=== PATIENT | female | born 1930 | race Caucasian/White ===

== ENCOUNTER → 2017-12-24 | Outpatient (CLI) | payer MEDICARE, OTHER ==
[~2017-12-24] MED LIST: ACET500 PO; ALPRAZOLAM; ASCO500 PO; CELE100 PO; Celebrex PO; Cipro250 MG PO; DESL5 PO; DEXL60CA3 PO; ESCI5 PO; ESOM20 PO; ESTR1; Felodipine ER5 MG PO; Guaifenesin Dm118 ML PO; HYDACE10B PO; HYDACE5 PO; Hydrocodone-Ap1 EA23 PO; IBUP600 PO; LEVFLO500 PO; LEVOTHYROXINE; LEVSOD100 PO; LORA10 PO; LORATADINE; MULVIT; NAPR500 PO; Norco 5-325 Ta1 EACH PO; PHENA200 PO; RALO60 PO; ROXICODONE5 MG PO; Robaxin500 MG PO; SYNTHROID; VALD20 PO; VENL75ER PO; Zofran Odt4 MG SL
== END | disposition home or self-care (01) ==
LOC: LAB SHORT 08:08 → PLD 08:08
DX: D48.5 Neoplasm of uncertain behavior of skin (principal)
CPT/HCPCS: 88305

== ENCOUNTER 2018-01-17 08:03 | Day surgery (SDC) | payer MEDICARE, OTHER ==
[~2018-01-17] VITALS: Ht 149.9 cm; Wt 55.6 kg
== END 2018-01-17 10:45 | disposition home or self-care (01) ==
LOC: ORSCSDS 08:03
PROVIDERS: Internal Medicine Gastroenterology
PROC: 0DB58ZX Excision of Esophagus, Via Natural or Artificial Opening Endoscopic, Diagnostic (ICD-10-PCS; principal; 2018-01-17 09:30)
PROC: 0DB68ZX Excision of Stomach, Via Natural or Artificial Opening Endoscopic, Diagnostic (ICD-10-PCS; principal; 2018-01-17 09:30)
PROC: 0D758ZZ Dilation of Esophagus, Via Natural or Artificial Opening Endoscopic (ICD-10-PCS; principal; 2018-01-17 09:30)
DX: R13.10 Dysphagia, unspecified (principal); K22.4 Dyskinesia of esophagus; K22.2 Esophageal obstruction; K44.9 Diaphragmatic hernia without obstruction or gangrene; K31.7 Polyp of stomach and duodenum; K22.8 Other specified diseases of esophagus; K21.9 Gastro-esophageal reflux disease without esophagitis; E03.9 Hypothyroidism, unspecified; J45.909 Unspecified asthma, uncomplicated; I10 Essential (primary) hypertension; Z79.899 Other long term (current) drug therapy
CPT/HCPCS: 88305; J7120

== ENCOUNTER → 2018-05-28 | Outpatient (CLI) | payer MEDICARE, OTHER ==
[2018-05-28 15:06] LABS: BASOPHILS ABSOLUTE AUTO 0.03 K/mm3 (0.00-0.23); BASOPHILS PERCENT AUTO 0 % (0-2); EOSINOPHILS PERCENT AUTO 1 % (0-6); Hematocrit 40.6 % (33.0-51.0); Hemoglobin 13.1 g/dL (11.5-16.0); IMMATURE GRAN ABSOLUTE AUTO 0.02 K/mm3 (0.00-0.10); IMMATURE GRAN PERCENT AUTO 0 % (0-1); LYMPHOCYTES ABSOLUTE AUTO 2.17 K/mm3 (0.84-5.20); LYMPHOCYTES PERCENT AUTO 26 % (21-46); MONOCYTES ABSOLUTE AUTO 0.38 K/mm3 (0.16-1.47); MONOCYTES PERCENT AUTO 5 % (4-13); Mean Corpuscular HGB 30.7 pg (26.0-34.0); Mean Corpuscular HGB Conc 32.3 g/dL (31.5-36.5); Mean Corpuscular Volume 95 fL (80-100); Mean Platelet Volume 10.6 fL (9.1-12.4); NEUTROPHILS ABSOLUTE AUTO 5.58 K/mm3 (1.96-9.15); NEUTROPHILS PERCENT AUTO 67 % (41-73); Platelet Count 281 K/mm3 (150-400); RDW Coefficient Variation 14.1 % (11.7-14.2); RDW Standard Deviation 49.6 fL (35.1-46.3); Red Blood Cell Count 4.27 M/mm3 (3.80-5.20); White Blood Cell Count 8.28 K/mm3 (4.00-11.30)
[2018-05-28 15:43] LABS: Alanine Aminotransfer (ALT/SGP 24 U/L (12-78); Albumin, Blood 3.7 g/dL (3.4-5.0); Albumin/Globulin Ratio 1.2 (0.8-1.8); Alk Phos 85 U/L (50-136); Anion Gap 6 mmol/L (6-16); Aspartate Aminotrans (AST/SGOT 12 U/L (12-37); Bilirubin, Total 0.3 mg/dL (0.1-1.0); Blood Urea Nitrogen 23 mg/dL (8-24); Bun/Creatinine Ratio 26.5 (12.0-20.0); CO2, Blood 27 mmol/L (21-32); Calcium, Blood 8.4 mg/dL (8.5-10.1); Chloride, Blood 105 mmol/L (98-108); Creatinine, Blood 0.87 mg/dL (0.40-1.00); Globulin, Blood 3.2 g/dL (2.2-4.0); Glomerular Filtration Rate >60 (60-); Glucose, Blood 111 mg/dL (70-99); Potassium, Blood 4.1 mmol/L (3.5-5.5); Sodium, Blood 138 mmol/L (136-145); Total Protein, Blood 6.9 g/dL (6.4-8.2)
[2018-05-28 15:46] LABS: Thyroid Stimulating Hormone 0.874 uIU/mL (0.360-4.800)
== END | disposition home or self-care (01) ==
LOC: LAB SHORT 14:51 → LAB 14:51
PROVIDERS: Physician Assistant
DX: R42 Dizziness and giddiness (principal)
CPT/HCPCS: 80053; 84443; 85025

== ENCOUNTER 2018-12-09 08:33 | Day surgery (SDC) | payer MEDICARE, OTHER ==
[~2018-12-09] VITALS: Ht 149.9 cm; Wt 53.2 kg
--- NOTE | 2018-12-09 09:21 | NUR ---
History, Chart, Medications and Allergies reviewed before start of procedure. Patient confirms NPO status and agrees with scheduled surgery. Lungs clear T/O to Auscultation. Patient reports completing Chlorhexadine shower X2 prior to admission to hospital. Pre-Op teaching done. Pt verbalizes understanding. GLASSES ON AT ADMIT, NO JEWELRY PRESENT, HEARING DEVICES BILATERAL PRESENT IN EARS.
--- NOTE | 2018-12-09 09:55 | NUR ---
PATIENT UP TO BR FOR UNMEASUERED VOID.
--- NOTE | 2018-12-09 09:56 | NUR ---
NOZIN SWABS COMPLETED PRE-OPERATIVELY.
--- NOTE | 2018-12-09 09:58 | NUR ---
PATIENT GAVE HER GLASSES TO HER TO HOLD.
--- NOTE | 2018-12-09 10:01 | NUR ---
DR PINEDA NOTIFIED OF ELEVATED B/P.
--- NOTE | 2018-12-09 10:07 | NUR ---
SENIOR QUALITY CONTROL INSPECTOR REPORT COMPLETED AT BEDSIDE WITH BALTAZAR BARBOUR RN.
--- NOTE | 2018-12-09 17:25 | NUR ---
SHIFT SUMMARY PT A&OX4, S/P R TKA, AQUACEL CDI, TEDS/SCDS/POLAR OLIVER ON. PAIN MANAGED WITH 5-10 MG OXY, TYLENOL AND TORADOL. CORRINA PO, DENIES N&V. AMB W/FWW/GB/SBA TO BRP. VOIDING WELL. PHYSICAL THERAPY EVAL'D, PT UP TO CHAIR. WCTM & TX PER EMAR UNTIL REPORT GIVEN TO ONCPRANAY SHEN RN.
[2018-12-10 04:35] LABS: BASOPHILS ABSOLUTE AUTO 0.04 K/mm3 (0.00-0.23); BASOPHILS PERCENT AUTO 1 % (0-2); EOSINOPHILS ABSOLUTE AUTO 0.37 K/mm3 (0.00-0.68); EOSINOPHILS PERCENT AUTO 5 % (0-6); Hematocrit 38.1 % (33.0-51.0); Hemoglobin 12.6 g/dL (11.5-16.0); IMMATURE GRAN ABSOLUTE AUTO 0.03 K/mm3 (0.00-0.10); IMMATURE GRAN PERCENT AUTO 0 % (0-1); LYMPHOCYTES ABSOLUTE AUTO 1.03 K/mm3 (0.84-5.20); LYMPHOCYTES PERCENT AUTO 14 % (21-46); MONOCYTES ABSOLUTE AUTO 0.61 K/mm3 (0.16-1.47); MONOCYTES PERCENT AUTO 8 % (4-13); Mean Corpuscular HGB 30.9 pg (26.0-34.0); Mean Corpuscular HGB Conc 33.1 g/dL (31.5-36.5); Mean Corpuscular Volume 93 fL (80-100); Mean Platelet Volume 9.8 fL (9.1-12.4); NEUTROPHILS ABSOLUTE AUTO 5.23 K/mm3 (1.96-9.15); NEUTROPHILS PERCENT AUTO 72 % (41-73); Platelet Count 228 K/mm3 (150-400); RDW Coefficient Variation 14.8 % (11.7-14.2); RDW Standard Deviation 51.7 fL (35.1-46.3); Red Blood Cell Count 4.08 M/mm3 (3.80-5.20); White Blood Cell Count 7.31 K/mm3 (4.00-11.30)
[2018-12-10 04:56] LABS: Anion Gap 5 mmol/L (6-16); Blood Urea Nitrogen 10 mg/dL (8-24); Bun/Creatinine Ratio 12.9 (12.0-20.0); CO2, Blood 29 mmol/L (21-32); Calcium, Blood 8.3 mg/dL (8.5-10.1); Chloride, Blood 104 mmol/L (98-108); Creatinine, Blood 0.78 mg/dL (0.40-1.00); Glomerular Filtration Rate >60 (60-); Glucose, Blood 102 mg/dL (70-99); Potassium, Blood 4.5 mmol/L (3.5-5.5); Sodium, Blood 138 mmol/L (136-145)
--- NOTE | 2018-12-10 05:26 | NUR ---
SUMMARY POD #1 RIGHT TKA DRSG REMAINS C/D/I, PAIN MANAGED PER EMAR. PT IS A 1 ASSIST USING FWW/GAIT BELT. TOLERATING PO INTAKE. VOIDING WNL. PT CALLS FOR ASSISTANCE NEEDED. CALL LIGHT IN REACH
[2018-12-10] MEDS ORDERED: OXYC5 PO (09:50)
[2018-12-10] MEDS ORDERED: XARELTO15 MG PO (09:50)
--- NOTE | 2018-12-10 11:10 | NUR ---
DISCHARGE PT HAS DONE VERY WELL, CLEARED THERAPY, TOLERATING DIET, VOIDING AND PASSING GAS, PAIN WELL MANAGED. SCRIPT AND DRSGS GIVEN. NELLIE CALLED TO [facility]. ESCORTED OUT VIA W/C. SPOUSE ATTENTIVE AND LOVING.
== END 2018-12-10 11:19 | disposition home or self-care (01) ==
LOC: ORSCMMR 08:33 → ORD 10:45 → SURS 13:52 → ORSCMMR 12-10 11:19
PROVIDERS: Orthopaedic Surgery
PROC: 0SRC069 Replacement of Right Knee Joint with Oxidized Zirconium on Polyethylene Synthetic Substitute, Cemented, Open Approach (ICD-10-PCS; principal; 2018-12-09 10:45)
DX: M17.11 Unilateral primary osteoarthritis, right knee (principal); I10 Essential (primary) hypertension; J45.909 Unspecified asthma, uncomplicated; E03.9 Hypothyroidism, unspecified; Z79.899 Other long term (current) drug therapy
CPT/HCPCS: 36415; 73560-RT; 80048; 83735; 85025; 88300; 97110; 97116; 97162; 97530; C1776; J0171; J0690; J0735; J1885; J2250; J2704; J2795; J3010; J7120

== ENCOUNTER 2020-11-09 11:10 | Day surgery (SDC) | payer MEDICARE, OTHER ==
[~2020-11-09 11:10] MED LIST changes: +CYAN1000I IM; +ESCI10 PO; +FELODIPINE ER5 M1 PO; +LORA10ER PO; +OXYC5 PO; +Premarin1.25 MG; +XARELTO15 MG PO
== END 2020-11-09 13:08 | disposition home or self-care (01) ==
LOC: ORSCSDS 11:10
PROVIDERS: Internal Medicine Gastroenterology
PROC: 0DJD8ZZ Inspection of Lower Intestinal Tract, Via Natural or Artificial Opening Endoscopic (ICD-10-PCS; principal; 2020-11-09 12:30)
DX: Z12.11 Encounter for screening for malignant neoplasm of colon (principal); Z86.010 Personal history of colon polyps; K64.8 Other hemorrhoids; I10 Essential (primary) hypertension; J45.909 Unspecified asthma, uncomplicated; E03.9 Hypothyroidism, unspecified; Z79.899 Other long term (current) drug therapy
CPT/HCPCS: J2704; J7120

== ENCOUNTER 2021-01-01 15:21 | Inpatient (IN) | payer MEDICARE, OTHER ==
[~2021-01-01] VITALS: Ht 170.2 cm; Wt 53.5 kg
[2021-01-01 15:45] LABS: BASOPHILS ABSOLUTE AUTO 0.02 K/mm3 (0.00-0.23); BASOPHILS PERCENT AUTO 0 % (0-2); EOSINOPHILS ABSOLUTE AUTO 0.01 K/mm3 (0.00-0.68); EOSINOPHILS PERCENT AUTO 0 % (0-6); Hematocrit 29.9 % (33.0-51.0); Hemoglobin 10.3 g/dL (11.5-16.0); IMMATURE GRAN ABSOLUTE AUTO 0.07 K/mm3 (0.00-0.10); IMMATURE GRAN PERCENT AUTO 0 % (0-1); LYMPHOCYTES ABSOLUTE AUTO 1.76 K/mm3 (0.84-5.20); LYMPHOCYTES PERCENT AUTO 11 % (21-46); MONOCYTES ABSOLUTE AUTO 1.62 K/mm3 (0.16-1.47); MONOCYTES PERCENT AUTO 10 % (4-13); Mean Corpuscular HGB 30.5 pg (26.0-34.0); Mean Corpuscular HGB Conc 34.4 g/dL (31.5-36.5); Mean Corpuscular Volume 89 fL (80-100); Mean Platelet Volume 10.3 fL (9.1-12.4); NEUTROPHILS ABSOLUTE AUTO 12.12 K/mm3 (1.96-9.15); NEUTROPHILS PERCENT AUTO 78 % (41-73); Platelet Count 208 K/mm3 (150-400); RDW Coefficient Variation 13.8 % (11.7-14.2); RDW Standard Deviation 45.2 fL (35.1-46.3); Red Blood Cell Count 3.38 M/mm3 (3.80-5.20)
[2021-01-01 16:09] LABS: Alanine Aminotransfer (ALT/SGP 18 U/L (12-78); Albumin, Blood 2.6 g/dL (3.4-5.0); Albumin/Globulin Ratio 0.7 (0.8-1.8); Alk Phos 64 U/L (50-136); Anion Gap 10 mmol/L (6-16); Aspartate Aminotrans (AST/SGOT 21 U/L (12-37); Bilirubin, Direct 0.3 mg/dL (0.0-0.3); Bilirubin, Indirect 0.7 mg/dL (0.1-0.7); Blood Urea Nitrogen 14 mg/dL (8-24); Bun/Creatinine Ratio 24.3 (12.0-20.0); CO2, Blood 21 mmol/L (21-32); Chloride, Blood 96 mmol/L (98-108); Creatinine, Blood 0.58 mg/dL (0.40-1.00); Globulin, Blood 3.6 g/dL (2.2-4.0); Glomerular Filtration Rate >60 (60-); Glucose, Blood 100 mg/dL (70-99); Magnesium, Blood 1.7 mg/dL (1.6-2.4); Potassium, Blood 4.2 mmol/L (3.5-5.5); Sodium, Blood 127 mmol/L (136-145); Total Protein, Blood 6.2 g/dL (6.4-8.2); Troponin I 0.059 ng/mL (0.000-0.040)
[2021-01-01 16:36] LABS: Base Excess Venous -0.6 mmol/L; Bicarbonate Venous 24.1 mmol/L (24.0-30.0); PCO2 Venous 38.8 mmHg (38-42); PO2 Venous 106 mmHg (38-42)
[2021-01-01 16:49] LABS: Source, Urine Catheter
[2021-01-01 16:53] LABS: Appearance, Urine Clear (Clear); Bilirubin, Urine Neg (Neg); Blood, Urine 3+ (Neg); Color, Urine Yellow (P-Yellow); Glucose Qualitative, Urine Neg (Neg); Ketones, Urine 3+ (Neg); Leukocyte Esterase, Urine Neg (Neg); Nitrite, Urine Neg (Neg); Protein, Urine 2+ (Neg); Urobilinogen, Urine NORM (Normal)
[2021-01-01 17:09] LABS: Bacteria Few /hpf; Squamous Epithelial Cells Few /hpf (Few)
[2021-01-01 17:37] LABS: SARS-Cov-2 (COVID-19) PCR, MMC NEGATIVE (NEGATIVE)
[2021-01-01 19:31] LABS: Percent Saturation 5.4 % (15.0-50.0)
[2021-01-02 05:04] LABS: Hematocrit 28.1 % (33.0-51.0); Hemoglobin 9.6 g/dL (11.5-16.0); Mean Corpuscular HGB 30.8 pg (26.0-34.0); Mean Corpuscular HGB Conc 34.2 g/dL (31.5-36.5); Mean Corpuscular Volume 90 fL (80-100); Mean Platelet Volume 11.5 fL (9.1-12.4); Platelet Count 194 K/mm3 (150-400); RDW Standard Deviation 46.1 fL (35.1-46.3); Red Blood Cell Count 3.12 M/mm3 (3.80-5.20); White Blood Cell Count 12.96 K/mm3 (4.00-11.30)
[2021-01-02 05:28] LABS: Anion Gap 6 mmol/L (6-16); Blood Urea Nitrogen 11 mg/dL (8-24); Bun/Creatinine Ratio 18.1 (12.0-20.0); CO2, Blood 25 mmol/L (21-32); Chloride, Blood 99 mmol/L (98-108); Creatinine, Blood 0.61 mg/dL (0.40-1.00); Glomerular Filtration Rate >60 (60-); Glucose, Blood 114 mg/dL (70-99); Potassium, Blood 3.6 mmol/L (3.5-5.5); Sodium, Blood 130 mmol/L (136-145)
--- NOTE | 2021-01-02 06:13 | NUR ---
PATIENT SUMMARY PATIENT IS ALERT AND ORIENTED 2-3 FORGETFUL, FLAT EFFECT. VS STABLE FOR PATIENT ON 4L NC. NO COMPLAINTS OF CHEST PAIN OR SHORTNESS OF BREATH. DRESSING IN C/D/I TO RIGHT BACK WITH CORRINE PRAT DRAIN DRAINING MINNIMAL BLOODY OUTPUT. JOHNS TO GRAVITY. ALL CARES COMPLETED AND MEDICATIONS GIVEN ORDERED TO NURSING JUDGEMENT. ALL UNFINISHED CARES ENDORSED TO ONCOMING RN.
--- NOTE | 2021-01-02 12:52 | NUR ---
SHIFT SUMMARY PT RESTING QUIETLY AT START OF SHIFT. WOKE EASILY FOR CARE. PT FORGETFUL AND UNSURE WHY SHE IS IN THE HOSPITAL. ATTEMPTED TO INFORM PT AND ASK QUESTIONS, BUT PT DOES NOT REMEMBER. PER REPORT, RESENT BACK SX FOR SPINAL STENOSIS WITH JENIFER DRAIN IN PLACE. SM AMT OF BLOODY FLUID IN DRAIN. DROPS ONLY IN TUBING. DRSG TO R LOW BACK C/D/I AT THIS TIME. PT CALLED FOR UPDATE AND REPORTED BACK SX DONE IN [place]. TO CALL UP THERE TOMORROW FOR INFO R/T HOW AND WHEN DRAIN TO BE REMOVED. PT C/O PAIN AND SWELLING TO RH. DAUGHTER CALLED FOR UPDATE THIS AM AND REPORTED RH SWELLING AND PAIN JUST APPEARED OVERNIGHT WHEN PT WOKE UP AT HOME YESTERDAY. DR COOLEY INFORMED OF RH PAIN AND SWELLING, REPORTING IT ARTHRITIS. TYLENOL GIVEN PER EMAR; PT REPORTED THAT IT HELPED. JOHNS TO GRAVITY DRAINING CL YELLOW. PER REPORT, PLACED FOR RETENSION. PT ABLE TO TAKE PO MEDS W/O DIFFICULTY IN APPLESAUCE. ABLE TO DRINK THIN LIQUIDS W/O DIFFICULTY WELL. SPEECH CLEAR. NO APPARENT NEURO DEFICITS NOTED AT THIS TIME. REPOSITIONED PER PT REQUEST, Q1-2 HRS. RESTING QUIETLY AT THIS TIME. CALL LT IN REACH. WILL MONITOR.
--- NOTE | 2021-01-02 18:06 | NUR ---
INS ORDERED EARLIER TODAY. PT INSTRUCTED ON USE AND HAS BEEN USING ON HER OWN ALL AFTERNOON. PT'S MENTATION HAS IMPROVED SINCE THIS AM WELL. VERY PLEASANT AND CO-OP OF CARE. ABLE TO MAKE NEEDS KNOWN.
[2021-01-03 05:13] LABS: Hematocrit 27.2 % (33.0-51.0); Hemoglobin 9.4 g/dL (11.5-16.0); Mean Corpuscular HGB 30.7 pg (26.0-34.0); Mean Corpuscular HGB Conc 34.6 g/dL (31.5-36.5); Mean Corpuscular Volume 89 fL (80-100); Mean Platelet Volume 11.3 fL (9.1-12.4); Platelet Count 240 K/mm3 (150-400); RDW Coefficient Variation 13.8 % (11.7-14.2); RDW Standard Deviation 45.3 fL (35.1-46.3); Red Blood Cell Count 3.06 M/mm3 (3.80-5.20); White Blood Cell Count 10.74 K/mm3 (4.00-11.30)
[2021-01-03 05:45] LABS: Albumin, Blood 2.3 g/dL (3.4-5.0); Anion Gap 7 mmol/L (6-16); Blood Urea Nitrogen 10 mg/dL (8-24); Bun/Creatinine Ratio 17.4 (12.0-20.0); CO2, Blood 24 mmol/L (21-32); Calcium, Blood 8.2 mg/dL (8.5-10.1); Chloride, Blood 100 mmol/L (98-108); Creatinine, Blood 0.57 mg/dL (0.40-1.00); Glomerular Filtration Rate >60 (60-); Glucose, Blood 105 mg/dL (70-99); Phosphorus, Blood 2.2 mg/dL (2.5-4.9); Potassium, Blood 3.4 mmol/L (3.5-5.5); Sodium, Blood 131 mmol/L (136-145)
--- NOTE | 2021-01-03 05:53 | NUR ---
SHIFT SUMMARRY PATIENT PLEASANT AND SLIGHTLY CONFUSED . REPORTS BACK PAIN, PRN TYLENOL GIVEN WITH GOOD EFFECTS. FETYNYL 25-50MG PRN ORDERED . PATIENT ALSO REPORTS CONSTIPATION STATING THAT LAST BM WAS SUNDAY. MD ORDERED BOWEL CARE PROTOCOL. 10ML MOM ADMISTERED , AWAITING RESULTS.
[2021-01-03 15:42] LABS: Vancomycin, Trough 2.9 ug/mL (5.0-10.0)
--- NOTE | 2021-01-03 18:33 | NUR ---
SHIFT SUMMARY PT DROWSY THIS A.M. BUT DID AROUSE TO NAME AND RESPOND APPROPRIATELY. APPEARS VAGUE BUT ABLE TO ANSWER ORIENTATION QUESTIONS CORRECTLY. DAUGHTER CONCERNED ABOUT ONGOING CONFUSION. THIS EVENING AFTER BEING SEEN BY Corrine. PT ATTEMPTED TO CLIMB OOB SAYING SHE THOUGHT SHE WAS GOING HOME UNTIL BED ALARM SOUNDED. ALSO INSISTED THAT I, THE RN, WAS HER DAUGHTER ADAMA. SHOWED HER MY BADGE AND SHE ASKED HOW I GOT THAT WHEN I WAS HER DAUGHTER ADAMA AND WHER WAS MY GLASSES. LATER AFTER SPEAKING WITH HER OTHER DAUGHTER NEIL SHE SAID I WASN'T HER DAUGHTER ADAMA. O2 TUBING CHANGED FROM OXIMIZER TO NASAL CANNULA WITH SATS AT 98% ON 4L/M. SPOKE WITH DR. CRUM OFFICE ABOUT JENIFER DRAIN WITH OK TO REMOVE DRAIN DUE TO NO FURTHER DRAINAGE FROM SITE. ANDREAS REMAINS. UP IN CHAIR FOR ONLY A SHORT TIME PRIOR TO LUNCH BUT DIDN'T TOLERATE SITTING UP FOR VERY LONG DUE TO DISCOMFORT.
[2021-01-04 05:14] LABS: Hematocrit 27.4 % (33.0-51.0); Hemoglobin 9.3 g/dL (11.5-16.0); Mean Corpuscular HGB 30.5 pg (26.0-34.0); Mean Corpuscular HGB Conc 33.9 g/dL (31.5-36.5); Mean Corpuscular Volume 90 fL (80-100); Mean Platelet Volume 10.6 fL (9.1-12.4); Platelet Count 300 K/mm3 (150-400); RDW Standard Deviation 45.5 fL (35.1-46.3); Red Blood Cell Count 3.05 M/mm3 (3.80-5.20); White Blood Cell Count 7.81 K/mm3 (4.00-11.30)
--- NOTE | 2021-01-04 05:39 | NUR ---
SHIFT SUMMARRY PATIENT REMAINS PLEASANTLY CONFUSED. NO ACUTE MEDICAL CHANGES. SLEPT MOST OF THE NIGHT. JOHNS CONTINUES TO DRAIN MODERATE AMOUNTS OF CLEAR YELLOW URINE.
[2021-01-04 05:50] LABS: Albumin, Blood 2.3 g/dL (3.4-5.0); Anion Gap 4 mmol/L (6-16); Blood Urea Nitrogen 9 mg/dL (8-24); Bun/Creatinine Ratio 13.5 (12.0-20.0); CO2, Blood 29 mmol/L (21-32); Calcium, Blood 8.4 mg/dL (8.5-10.1); Chloride, Blood 101 mmol/L (98-108); Creatinine, Blood 0.67 mg/dL (0.40-1.00); Glomerular Filtration Rate >60 (60-); Glucose, Blood 92 mg/dL (70-99); Phosphorus, Blood 2.9 mg/dL (2.5-4.9); Potassium, Blood 3.9 mmol/L (3.5-5.5); Sodium, Blood 134 mmol/L (136-145)
[2021-01-04 15:20] LABS: Vancomycin, Trough 8.3 ug/mL (5.0-10.0)
--- NOTE | 2021-01-04 18:41 | NUR ---
SHIFT SUMMARY JENIFER DRAIN REMOVED THIS MORNING WITH NO APPARENT TRAUMA. DRESSING APPLIED FOR POTENTIAL FURTHER DRAINAGE. INCISION NO LONGER DRAINING. JOHNS REMOVED THIS MORNING AT 1030 AND PT HAS VOIDED ONCE WITH NO RESIDUAL NOTED WITH BLADDER SCAN. APPEARS MENTALLY MORE CLEAR THAN YESTERDAY. ABLE TO USE CELL PHONE. UP IN CHAIR THIS AFTERNOON TWICE. AMBULATED TO BATHROOM WITH 1 PERSON ASSIST USING FWW. HAS DENIED PAIN THROUGH DAY.
--- NOTE | 2021-01-05 05:11 | NUR ---
SHIFT SUMMARRY PATIENT QUIET IN BED MOST OF THAE NIGHT. ASSISTED TO THE BATHROOM TWICE FOR LARGE AMOUNTS OF CLEAR YELLOW VOIDS. NO SSOF DISTRESS NOTED. NO ACUTE MEDICAL CHANGES THIS SHIFT.
[2021-01-05 12:05] LABS: SARS-Cov-2 (COVID-19) PCR, MMC NEGATIVE (NEGATIVE)
[2021-01-05] MEDS ORDERED: ACET325 PO (13:04)
[2021-01-05] MEDS ORDERED: BISA10S PR (13:07)
[2021-01-05] MEDS ORDERED: CITA20 PO (13:07)
[2021-01-05] MEDS ORDERED: CYAN500 PO (13:08)
[2021-01-05] MEDS ORDERED: DOCU100 PO (13:08)
[2021-01-05] MEDS ORDERED: LEVOFLOXACIN750 MG PO (13:09)
[2021-01-05] MEDS ORDERED: CALYPXO HP CRE113 GM TOP (13:33)
[2021-01-05] MEDS ORDERED: ONDA4ODT MM (13:33)
[2021-01-05] MEDS ORDERED: SENN187 PO (13:34)
[2021-01-05] MEDS ORDERED: PANT40 PO (13:34)
--- NOTE | 2021-01-05 13:35 | NUR ---
PATIENT IS ALERT AND ORIENTED X 3. SHE REPORTS HX OF CHRONIC BACK PAIN. SHE WAS GIVEN TYLENOL WHICH PROVIDED RELIEF. SHE IS VERY PLEASANT AND COOPERATIVE. 95% ON RA. DENIES SOB OR DIFFICULTY BREATHING. LUNGS CLEAR WITH CRACKLES AT BASES. SHE IS TOLERATING PO MED AND FOOD. VOIDING WITHOUT DIFFICULTY. LAST BM REPORTED ON YESTERDAY. SHE WEARS HEARING AID AND REPORTS NOT BEING ABLE TO FIND THE [employer] ADMISSIONS REPRESENTATIVE FOR HEARING AID. ROOM WAS SEARCHED AND NOT ABLE TO LOCATED. SHE IS ON TELE WITH NSR 60 - 70'S. CALLED [facility] AND GAVE REPORT TO PORSCHE AT 1335. WILL CONTINUE TO MONITOR.
[2021-01-05] MEDS ORDERED: FERSU300 PO (13:36)
[2021-01-05] MEDS ORDERED: VISBIOME 112.51 EACH PO (13:36)
--- NOTE | 2021-01-05 16:53 | NUR ---
PATIENT IS ALERT AND ORIENTED X 3. PAIN CONTROLLED WITH TYLENOL. SHE DOES NOT APPEAR TO BE IN ACUTE DISTRESS. SHE IS CALM AND COOPERATIVE. SHE HAD AN UNEVENTFUL DAY. IV HL WAS REMOVED FROM RIGHT FOREARM AND SITE WAS UNREMARKABLE. TELEMETRY WAS DISCONTINUED. BELONGINGS WERE GIVEN TO THE PATIENT. TRANSPORTER WAS HERE TO TRANSPORT HER VIA WHEELCHAIR FOR DISCHARGE.
== END 2021-01-05 16:57 | DRG 871 ==
LOC: ER 15:21 → ERHOLD 18:14 → MEDS 23:25
PROVIDERS: Family Medicine; Internal Medicine; Student in an Organized Health Care Education/Training Program; ADMIT Internal Medicine
DX: A41.9 Sepsis, unspecified organism (principal); J18.9 Pneumonia, unspecified organism; J96.01 Acute respiratory failure with hypoxia; G92 Toxic encephalopathy; I21.A1 Myocardial infarction type 2; E87.1 Hypo-osmolality and hyponatremia; Z20.822 Contact with and (suspected) exposure to COVID-19; E87.6 Hypokalemia; E83.39 Other disorders of phosphorus metabolism; D50.9 Iron deficiency anemia, unspecified; I10 Essential (primary) hypertension; E03.9 Hypothyroidism, unspecified; K21.9 Gastro-esophageal reflux disease without esophagitis; M19.90 Unspecified osteoarthritis, unspecified site; F32.9 Major depressive disorder, single episode, unspecified; Z96.612 Presence of left artificial shoulder joint; Z90.710 Acquired absence of both cervix and uterus; Z98.890 Other specified postprocedural states; Z79.899 Other long term (current) drug therapy
CPT/HCPCS: 36415; 51702; 71045; 72132; 80048; 80069; 80076; 80202; 81001; 82728; 82803; 83540; 83550; 83605; 83690; 83735; 84484; 85025; 85027; 87040; 93005; 93010; 96365-59; 96367-59; 97110; 97116; 97129; 97162; 97167; 97530; 97535; 99285-25; A9270; J0696; J1650; J2543; J2916; J3370; J7030; J7060; J7120; Q9967; U0004

== ENCOUNTER → 2021-01-25 | Outpatient (CLI) | payer MEDICARE, OTHER ==
[~2021-01-25] MED LIST changes: +ACET325 PO; +BISA10S PR; +CALYPXO HP CRE113 GM TOP; +CITA20 PO; +CYAN500 PO; +DOCU100 PO; +FERSU300 PO; +LEVOFLOXACIN750 MG PO; +ONDA4ODT MM; +PANT40 PO; +SENN187 PO; +VISBIOME 112.51 EACH PO
[2021-01-25 14:48] LABS: Source, Urine Clean Catch
[2021-01-25 17:22] LABS: Appearance, Urine Clear (Clear); Bilirubin, Urine Neg (Neg); Blood, Urine Neg (Neg); Color, Urine Yellow (P-Yellow); Glucose Qualitative, Urine Neg (Neg); Ketones, Urine Neg (Neg); Leukocyte Esterase, Urine 1+ (Neg); Nitrite, Urine Neg (Neg); Protein, Urine 1+ (Neg); Urobilinogen, Urine NORM (Normal)
[2021-01-25 17:51] LABS: Bacteria Few /hpf; Calcium Oxalate Crystals Few /hpf; Red Blood Cells, Urine 0-2 /hpf (0-2); Squamous Epithelial Cells Few /hpf (Few)
== END | disposition home or self-care (01) ==
LOC: LAB SHORT 14:46 → LAB 14:46
PROVIDERS: Internal Medicine
DX: R31.21 Asymptomatic microscopic hematuria (principal)
CPT/HCPCS: 81001; 87086